=== PATIENT | female | born 1945 | race Caucasian/White ===

== ENCOUNTER 2023-10-13 16:13 | Outpatient (REF) | payer MEDICARE, BC, SELFPAY ==
[2023-10-13 21:16] LABS: Abs Immature Grans 0.01 10^3/uL (0.0-0.06); Absolute Basophil Count 0.05 10^3/uL (0.0-0.2); Absolute Eosinophil Count 0.04 10^3/uL (0.0-0.7); Absolute Monocyte Count 0.55 10^3/uL (0.1-0.8); Absolute Neutrophil Count 3.59 10^3/uL (1.2-6.7); Eosinophils % 0.8; HCT 42.4 % (36.0-46.0); HGB 13.8 g/dL (11.2-15.7); Immature Grans % 0.2; Lymphocytes % 17.5; MCH 29.7 pg (27.0-33.0); MCHC 32.5 % (32.0-36.0); MCV 91 fL (80-95); Monocytes % 10.7; Neutrophils % 69.8; RBC 4.64 10^6/uL (3.93-5.22); RDW 13.4 % (11.7-14.6); RDW-SD 45.1 fL; WBC 5.14 10^3/uL (4.4-10.8)
[2023-10-13 21:41] LABS: Diff Comment PLT Morph Reviewed; RBC Morphology Normal
[2023-10-13 21:51] LABS: Vitamin D 25 Total 60.4 ng/mL (30-100)
[2023-10-13 22:06] LABS: ALT 30 U/L (14-59); AST 29 U/L (15-37); Albumin 3.8 g/dL (3.4-5.0); Alkaline Phosphatase 74 U/L (46-116); Anion Gap 6.3 mmol/L (3-11); BUN 12 mg/dL (7-18); Bilirubin, Total 0.3 mg/dL (0.2-1.0); CO2 30.7 mmol/L (21.0-32.0); CREATININE 0.7 mg/dL (0.55-1.02); Chloride 102 mmol/L (98-107); Estimated GFR 89.02 (mL/min/1.73m2); Glucose 113 mg/dL (74-106); Potassium 4.2 mmol/L (3.5-5.1); Sodium 139 mmol/L (136-145); TSH (W/Ref FT4) 1.15 uIU/mL (0.36-3.74); Total Protein 7.5 g/dL (6.4-8.2); Vitamin B12 1738 pg/mL (193-986)
== END 2023-10-13 16:14 | disposition home or self-care (01) ==
LOC: NCHCN 16:13
PROVIDERS: Visit Provider Family Medicine
DX: R53.83 Other fatigue (principal); D51.9 Vitamin B12 deficiency anemia, unspecified; E55.9 Vitamin D deficiency, unspecified; M62.81 Muscle weakness (generalized)
CPT/HCPCS: 80053; 82306; 82607; 83735; 84443; 85025

== ENCOUNTER 2024-09-28 13:07 | Outpatient (REF) | payer MEDICARE, BC, SELFPAY ==
[2024-09-28 14:45] LABS: HCT 44.4 % (36.0-46.0); HGB 14.2 g/dL (11.2-15.7); MCH 30.1 pg (27.0-33.0); MCV 94 fL (80-95); MPV 10.6 fL (8.0-11.0); Platelet Count 185 10^3/uL (130-400); RBC 4.72 10^6/uL (3.93-5.22); RDW 13.1 % (11.7-14.6); RDW-SD 45.5 fL
[2024-09-28 15:21] LABS: Anion Gap 5.2 mmol/L (3-11); BUN 9 mg/dL (7-18); CO2 30.8 mmol/L (21.0-32.0); CREATININE 0.9 mg/dL (0.55-1.02); Calculated LDL 129 mg/dL (<100); Chloride 104 mmol/L (98-107); Cholesterol 219 mg/dL (<200); Estimated GFR 65.44 (mL/min/1.73m2); Glucose 95 mg/dL (74-106); HDL Cholesterol 68 mg/dL (40-60); Potassium 4.3 mmol/L (3.5-5.1); Sodium 140 mmol/L (136-145); Triglyceride 110 mg/dL (<150)
== END 2024-09-28 13:08 | disposition home or self-care (01) ==
LOC: NCHCN 13:07
PROVIDERS: PCP Internal Medicine; Visit Provider Internal Medicine
DX: Z01.818 Encounter for other preprocedural examination (principal); I44.7 Left bundle-branch block, unspecified
CPT/HCPCS: 80048; 80061; 85027

== ENCOUNTER 2024-10-09 10:07 | Outpatient (REF) | payer MEDICARE, BC, SELFPAY | END 2024-10-09 10:08 | disposition home or self-care (01) | LOC: NCHCN 10:07 | PROVIDERS: PCP Internal Medicine; Visit Provider Physician Assistant | DX: R30.0 Dysuria (principal); B96.5 Pseudomonas (aeruginosa) (mallei) (pseudomallei) as the cause of diseases classified elsewhere | CPT/HCPCS: 87077; 87086; 87186 ==